=== PATIENT | male | born 1940 | race Caucasian/White ===

== ENCOUNTER 2016-07-01 10:09 | Emergency (ER) | payer MEDICAID ==
[~2016-07-01] VITALS: Ht 165.1 cm; Wt 72.7 kg
[2016-07-01] MEDS ORDERED: ACETAMINOPHEN 500 MG TAB PO STA (10:15)
[2016-07-01 10:19] VITALS: Ht 165.1 cm; Wt 72.7 kg
--- NOTE | 2016-07-01 10:43 | RADRPT ---
PROCEDURE: CT Brain without contrast. CLINICAL INDICATION: Trauma. Dizziness. TECHNIQUE: A CT of the brain was performed utilizing axial sections from the skull base through th e vertex without contrast. Images were reviewed on a high-resolution PACS workstation. images. The calculated radiation dose measures 720.23 mGy centimeters. The CTDI measures 44.11 mGy. One or more of the following dose reduction techniques were used: - Automated exposure control. - Adjustment of the mA and/or kV according to patient size . - Use of iterative reconstruction technique. Images were reviewed on a high-resolution PACS workstation COMPARISON: None available FINDINGS: There is a mild amount of left frontal scalp swelling/hematoma. Mild diffuse cerebral and cerebella r atrophy is present. There is proportionate dilatation of the ventricular system and sulci in a sy mmetric fashion. There is prominence of the extraaxial spaces secondary to atrophy. There is no evid ence of intracranial hemorrhage, mass effect or midline shift. No abnormal intra-axial or extra-axi al fluid collections are seen. The density of the brain is normal and the hernandez/white matter differe ntiation is well preserved. Mild patchy diffuse deep white matter microangiopathic ischemic change is seen. The osseous structures are intact. Mucoperiosteal thickening is seen of the ethmoid sinus es. IMPRESSION: 1. Moderate left frontal scalp swelling/hematoma. 2. No acute intracranial findings. 3. Mild cortical atrophy and microangiopathic change. RPTAT: PP .Alphonso Oneil MD, MD Date Time Electronically viewed and signed by .Alphonso Oneil MD, MD on 07/01/2016 10:43 .d/
[2016-07-01] MEDS ORDERED: ACET500C5 PO (11:02)
--- NOTE | 2016-07-01 11:06 | ERA ---
ER Documentation Chief Complaint Date/Time DATE: 07/01/16 TIME: 11:04 Chief Complaint glf at 0800 while visiting rm 522; report fall at 0945; code mauri HPI Pleasant 75-year-old male. 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 A code mauri was called. The patient is visiting someone in room 522. Apparently around 4 AM this morning the patient had a ground-level fall where he slipped in the bathroom and hit his head. He denies loss of consciousness. The patient sustained a large hematoma in the left temporal region of his head. He denies anticoagulants. He does describe a mild throbbing headache and tenderness to touch over the hematoma. He denies any neck pain, no motor weakness. No prodrome of chest pain or shortness of breath. ROS All systems reviewed and are negative except as per history of present illness. Medications Home Meds Active Scripts Acetaminophen* (Tylophen*) 500 Mg Capsule, 2 CAP PO Q8H Y for PAIN AND OR ELEVATED TEMP, #20 CAP Prov:AMANDA CENTENO MD 07/01/16 PMhx/Soc Medical and Surgical Hx: pt denies Medical Hx, pt denies Surgical Hx History of Surgery: No Anesthesia Reaction: No Hx Neurological Disorder: No Hx Respiratory Disorders: No Hx Cardiac Disorders: No Hx Psychiatric Problems: No Hx Miscellaneous Medical Probl: No Hx Alcohol Use: No Hx Substance Use: No Hx Tobacco Use: No FmHx Family History: No diabetes Physical Exam Vitals Vital Signs Date Time Temp Pulse Resp B/P Pulse Ox O2 Delivery O2 Flow Rate FiO2 07/01/16 10:19 97.8 69 18 139/81 97 Physical Exam Airway is intact Bilateral breath sounds Strong distal pulses No obvious deficits General: Well developed, well nourished, no acute distress Head: Large 3 cm hematoma to the left temporal forehead Eyes: Pupils equally reactive, EOM intact ENT: Moist mucous membranes Neck: Supple, no lymphadenopathy, No midline tenderness, deformities, step-offs to the cervical spine, full active and passive range of motion without midline pain. Respiratory: Lungs clear bilaterally, no distress, no chest wall tenderness, no crepitus Cardiovascular: RRR, no murmurs, rubs, or gallops Abdominal: Soft, non-tender, non-distended, no peritoneal signs, pelvis is stable : Deferred MSK: No edema, no unilateral swelling, 5/5 strength, no midline tenderness deformities or step-offs to the thoracolumbar spine Neurologic: Alert and oriented, moving all extremities, normal speech, no focal weakness, no cerebellar signs Skin: No ecchymoses or bruising to the chest or abdomen Psych: Normal mood Results 24 hrs Current Medications Medications (Trade) Dose Ordered Sig/Desiree Route PRN Reason Start Time Stop Time Status Last Admin Dose Admin Acetaminophen (Tylenol Tab) 1,000 mg ONCE STAT PO 07/01/16 10:15 07/01/16 10:16 DC 07/01/16 10:20 Procedures/MDM EKG, MONITORS, & DIAGNOSTIC IMAGING: CT brain: IMPRESSION: 1. Moderate left frontal scalp swelling/hematoma. 2. No acute intracranial findings. 3. Mild cortical atrophy and microangiopathic change. RPTAT: PP MEDICAL DECISION MAKING: The patient presents with a closed head injury. No anticoagulation given the patient's age CT imaging of the brain is appropriate. The patient does not meet high-risk criteria and based on NEXUS cervical spine criteria there is no indication for cervical spine imaging at this time. No prodrome of chest pain or lightheadedness that would be concerning for syncope. ER COURSE: The patient was given Tylenol. He is otherwise well-appearing, CT of the brain is negative. The patient continues to be well-appearing with a steady gait, normal neurologic exam. At this time the patient is safe for discharge, close head injury precautions discussed with the patient. I kept the patient and/or family informed of laboratory and diagnostic imaging results throughout the emergency room course. DISPOSITION PLAN: We discussed follow up with the patient's primary care doctor within 24 to 48 hours as needed. We also discussed return to the emergency room for worsening symptoms or worsening condition. Discharge Medications: Tylenol Departure Diagnosis: Primary Impression: Hematoma of scalp Qualified Code: S00.03XA - Hematoma of scalp, initial encounter Additional Impression: Closed head injury Qualified Code: S09.90XA - Closed head injury, initial encounter Condition: Stable Patient Instructions: HEAD INJURY, No Wake-Up (Adult) Referrals: [facility] Usted se hendrickson hecho un examen mdico de control que le indica que no est en cadni condicin que requiera tratamiento urgente en el Departamento de Emergencia. Un estudio ms profundo y el tratamiento de chapman condicin pueden esperar sin ningn riesgo hasta que usted sea atendida/o en el consultorio de chapman mdico o candi cl rashida. Es responsabilidad suya arreglar candi mey para el seguimiento del alexandre. MANEJO DE CONDICIONES NO URGENTES EN EL FUTURO 1) Si usted tiene un mdico de atencin primaria: Usted debera llamar a chapman mdico de atencin primaria antes de venir al departamento de emergencia. Despus de las horas de consultorio, chapman doctor o chapman asociado/a est disponible por telfono. El mdico o enfermero de jacquelyn en el servicio telefnico puede asesorarle por raj medio para atender el problema, o alexandre contrario se puede programar candi mey. 2) Si usted no tiene un mdico de atencin primaria: Llame al mdico o clnica de referencia que aparece abajo garth las horas de consultorio para hacer candi mey para que le vean. CLINICAS: [facility] [phone] [facility] [phone] [facility]. [facility] [phone] [facility]. [facility] [phone] [facility] [place] [id number] [phone] [facility]. [phone] [address] . [facility] () Usted se hendrickson hecho un examen mdico de control que le indica que no est en candi condicin que requiera tratamiento urgente en el Departamento de Emergencia. Un estudio ms profundo y el tratamiento de chapman condicin pueden esperar sin ningn riesgo hasta que usted sea atendida/o en el consultorio de chapman mdico o candi cl rashida. Es responsabilidad suya arreglar candi mey para el seguimiento del alexandre. MANEJO DE CONDICIONES NO URGENTES EN EL FUTURO 1) Si usted tiene un mdico de atencin primaria: Usted debera llamar a chapman mdico de atencin primaria antes de venir al departamento de emergencia. Despus de las horas de consultorio, chapman doctor o chapman asociado/a est disponible por telfono. El mdico o enfermero de jacquelyn en el servicio telefnico puede asesorarle por raj medio para atender el problema, o alexandre contrario se puede programar candi mey. 2) Si usted no tiene un mdico de atencin primaria: Llame al mdico o condado institucions de referencia que aparece abajo garth las horas de consultorio para hacer candi mey para que le vean. SI USTED NO PUEDE PAGAR PARA DENISA UN MEDICO puede ir a: [facility] [address] [place] [address] [facility] [address] [place] [address] [facility] [address] [place] [address] [facility] [address] [place], [place] [id number] Additional Instructions: Llame al doctor nombrado abajo (Referral Sources) MAANA y jes candi MEY PARA DENTRO DE CANDI SEMANA. Dgale a la secretaria que nosotros le instruimos hacer esta mey.Avise o llame si chapman condicin se empeora antes de la mey. AMANDA CENTENO MD Jul 01, 2016 11:06
== END 2016-07-01 11:32 | disposition home or self-care (01) ==
LOC: FTE 10:09
DX: S00.03XA Contusion of scalp, initial encounter (principal); W01.198A Fall on same level from slipping, tripping and stumbling with subsequent striking against other object, initial encounter; Y92.002 Bathroom of unspecified non-institutional (private) residence as the place of occurrence of the external cause
CPT/HCPCS: 70450; Z7502; Z7610